=== PATIENT | female | born 1965 | race Caucasian/White ===

== ENCOUNTER 2017-12-25 10:41 | Day surgery (SDC) | payer OTHER ==
[2017-12-21 16:19] VITALS: BMI 22.4
[~2017-12-25 10:41] MED LIST: LACTATED RINGERS 1,000 ML IV SCH
[2017-12-25 11:01] VITALS: RESP 16; TEMP 98.4
[2017-12-25] MEDS ORDERED: LIDOCAINE 1% 20 ML VIAL (10MG/ML) FOR IV START INTRADERMA ONE (11:02)
[2017-12-25] MEDS ORDERED: LIDOCAINE 1% INJ 10MG/ML (20 ML MDV) ONE (12:11)
[2017-12-25] MEDS ORDERED: PROPOFOL 10 MG/ML 20 ML VIAL IV ONE (12:11)
[2017-12-25 12:39] VITALS: BP 103/65; PULSE 71
--- NOTE | 2017-12-25 12:42 | P.PCN ---
Date of Procedure: 12/25/17 Procedure(s) Performed: Procedure: Total colonoscopy. Preoperative diagnosis: Screening for neoplasia. Postoperative diagnosis: Mild diverticulosis with no evidence of acute diverticulitis, strictures, polyps or cancer. Preparation: HalfLytely prep. Sedation: Was provided by anesthesia. Brief clinical history: The patient is a 52-year-old female who is scheduled for this evaluation for screening for neoplasia age being her risk factor. There is no family history of colon cancer. She has no abdominal complaints, bleeding or anemia. Procedure: With the patient on her left lateral decubitus position and after informed consent and adequate sedation, the perianal area was elected and it did not show any fissures or fistulas. There were no masses felt on digital rectal examination. The Olympus CFQ 160L video colonoscope was then inserted in the rectum in the usual fashion and advanced to the cecum. There was occasional diverticular orifice seen on the right side and in the sigmoid but there was no evidence of acute diverticulitis or strictures. No polyps or tumors were seen. I retroflexed the endoscope in the rectum before the endoscope was withdrawn. The patient tolerated the procedure well. Plan: The patient was reassured. Discussed dietary measures. She will follow- up with you as planned and I recommended repeat exam in 10 years.
== END 2017-12-25 13:13 | disposition home or self-care (01) ==
LOC: ORWHC2ENDO 10:41
DX: Z12.11 Encounter for screening for malignant neoplasm of colon (principal); K57.30 Diverticulosis of large intestine without perforation or abscess without bleeding; F39 Unspecified mood [affective] disorder; Z79.1 Long term (current) use of non-steroidal anti-inflammatories (NSAID); Z79.891 Long term (current) use of opiate analgesic; Z79.899 Other long term (current) drug therapy; Z72.0 Tobacco use
CPT/HCPCS: J2001; J2704; G0121

== ENCOUNTER → 2019-07-31 | Outpatient (CLI) | payer OTHER ==
--- NOTE | 2019-08-01 00:13 | MR ---
EXAMINATION TYPE: MR lumbar spine wo con DATE OF EXAM: 07/31/2019 COMPARISON: None HISTORY: Chronic lower/mid back pain, hx thrown off horse as a child Multiplanar multiecho imaging of the lumbar spine was performed without contrast. There is mild thoracolumbar levoscoliosis. Disc spaces are fairly normal. There is no compression fra cture. There is developmentally large spinal canal. There is no spinal stenosis. There is small poste rior disc bulging at L5-S1 and L4-5 without compromise of the spinal canal. The lumbar neural foramin a are fairly well-maintained. There is no neural foraminal stenosis. I see no focal bone destruction. There is no lumbar paraspinal mass. The visualized sacroiliac joints appear intact. Lumbar nerve francia ts appear normal. IMPRESSION: Small posterior disc bulging at L4-5 L5-S1. No fracture. No spinal stenosis.
== END | disposition home or self-care (01) ==
LOC: RADMRIMAIN 16:31
PROVIDERS: ATTEND Family Medicine
DX: M51.26 Other intervertebral disc displacement, lumbar region (principal); M51.36 Other intervertebral disc degeneration, lumbar region; G89.29 Other chronic pain
CPT/HCPCS: 72148

== ENCOUNTER → 2020-07-03 | Outpatient (CLI) | payer OTHER ==
--- NOTE | 2020-07-03 12:35 | MR ---
MRI CERVICAL SPINE: CLINICAL HISTORY: Cervical disc degeneration, paresthesia of the skin, and other chronic pain per ord er. TECHNIQUE: Multiplanar, multisequence imaging of the cervical spine is performed without IV contrast. Headache with neck pain for 15 to 20 years causing pain or weakness into both arms and fingers per p atient. COMPARISON: None. FINDINGS: Coronal images show levoconvex scoliosis centered in the upper thoracic spine. Sagittal marci ges of the cervical spine show the craniocervical junction to appear within normal limits. The cervi marianela and upper thoracic spinal cord is normal in caliber and signal. Sagittal images show grade 1 retr olisthesis C5 on C6. There is moderate disc space narrowing at this level otherwise vertebral body an d intravertebral disk heights are normal. The bone marrow signal intensity is within normal limits. Axial images at C2-C3 level show uncovertebral facet degenerative changes bilaterally causing mild ri ght-sided neural foraminal narrowing. Axial images at C3-C4 level are within normal limits. Axial images at C4-C5 level show uncovertebral facet degenerative changes bilaterally causing mild to moderate left and mild to minimal right-sided neural foraminal narrowing. Axial images at C5-C6 level shows spondylosis with broad-based posterior disc protrusion, there is ef facement of the anterior thecal sac and fairly advanced bilateral neural foraminal narrowing. Axial images at C6-C7 and C7-T1 levels are within normal limits. IMPRESSION: Multilevel degenerative changes greatest at C5-C6 level as detailed above.
== END | disposition home or self-care (01) ==
LOC: RADMRIMAIN 10:39
PROVIDERS: ATTEND Family Medicine
DX: M47.812 Spondylosis without myelopathy or radiculopathy, cervical region (principal); G89.29 Other chronic pain
CPT/HCPCS: 72141

== ENCOUNTER → 2021-10-19 | Outpatient (CLI) | payer OTHER ==
--- NOTE | 2021-10-19 12:42 | XR ---
EXAM TYPE: LUMBAR SPINE X RAY SERIES COMPARISON: NONE HISTORY: Pain TECHNIQUE: 4 views are submitted. FINDINGS: Alignment is anatomic. The pedicles are intact. The transverse processes are intact. There is no s pondylolysis or spondylolisthesis. Curvature of the spine with diffuse osteopenia. Facet arthropathy lower lumbar spine and there is multilevel hypertrophic and degenerative change. IMPRESSION: 1. Multilevel degenerative disc disease with severe facet arthropathy lower lumbar spine with suspect ed foraminal encroachment. Recommend follow-up MRI.
--- NOTE | 2021-10-19 12:43 | XR ---
EXAMINATION TYPE: XR sacrum coccyx DATE OF EXAM: 10/19/2021 COMPARISON: NONE HISTORY: Pain Three views are submitted. SI joints are symmetric. Slight cortical offset of the sacrococcygeal sarath ction. Visualized pelvic structures intact. Facet arthropathy and degenerative disc disease lower l umbar spine. Sacral foramina appear patent and symmetric. IMPRESSION: 1. Slight offset of the sacrococcygeal junction on the lateral view. Correlate with point tenderness and with CT scan to assess for possible minimally displaced fracture.
== END | disposition home or self-care (01) ==
LOC: RADXRYALE 12:20
PROVIDERS: ATTEND Physician Assistant Medical
DX: M51.36 Other intervertebral disc degeneration, lumbar region (principal); M46.96 Unspecified inflammatory spondylopathy, lumbar region
CPT/HCPCS: 72110; 72220

== ENCOUNTER → 2021-10-20 | Outpatient (CLI) | payer OTHER ==
--- NOTE | 2021-10-20 15:11 | P.CON ---
Consult Note - . Consult date: 10/20/21 Assessment/Plan:: HISTORY OF PRESENT ILLNESS: 56 yr old female as a referral from Dr. Kaiser presents today with cervical pain secondary to DDD, spondylosis and facet arthropathy for evaluation. Pt states she has been suffering from neck pain for 20 years. Pain originates in the middle aspect of her cervical spine and radiates downwards between the shoulders bilaterally. It is also accompanied with headaches. Pain is 8 out of 10 in intensity, sharp, burning, waxes and wanes throughout the day with occasional numbness to the hands bilaterally. Pain is aggravated with rotation of the cervical spine. Pain is relieved with medications, topicals, heat, physical therapy twice a week for a year in the past, chiropractic treatments in the past, use of a massage device, using a reclining chair, laying on her right side and rest. PMH: Diverticulosis, MDD, Peripheral Neuropathy, CKD Stage 3. PSH: Colonoscopy, Cervical DDD, SH: Current tobacco user. Occassional ETOH use. No illicit drug use. FH: Non contributory. All: NKDA Meds: Percocet 10/325mg QID prn. Fentanyl 25mcg patch Q72hr. Trazodone 25mg QHS. REVIEW OF ORGAN SYSTEMS: CONSTITUTIONAL: No fevers or chills. No recent weight loss. HEENT: No visual acuity loss, eye pain, difficulties with hearing. No nosebleeds. No difficulty swallowing. RESPIRATORY: Denies any troubles with breathing or dyspnea on exertion. CARDIOVASCULAR: Denies any chest pain, palpitations, or recent heart attacks. GASTROINTESTINAL: Denies fatty food intolerance. Has change in bowel habits and gas bloat. GENITOURINARY: Denies any blood in urine. Has increased urinary frequency. NEUROLOGICAL: + numbness and tingling along the distal extremities. No seizure disorders or headaches. MUSCULOSKELETAL: + back pain SKIN: No skin cancer. No rash. PSYCHIATRIC: Denies current depression or suicidal thoughts. ENDOCRINE: Denies current thyroid disorders. Denies any blood sugar glucose intolerance. HEME/LYMPHATIC: Denies any lumps and bumps around the neck. History of deep venous thrombosis. ALLERGY/IMMUNOLOGY: No immunoglobulin therapy. No immune deficiencies. BREAST: Denies current breast lumps, pain or nipple discharge. Physical Examinations : Constitutional : Cooperative , not in acute distress . HEENT: Neck supple. No Lymphadenopathy. Normal thyroid size . Eyes no ptosis , no icterus, no photophobia . Hearing intact. Normal oropharynx. No Thrush. Respiratory : Chest clear to auscultations bilaterally. No wheezing. No rhonchi. Cardiovascular : Regular rate and rhythm , S1 / S2. No S3 . No S4. Gastrointestinal : Abdomen soft. No tenderness. Bowel sounds x 4. No organomegaly . Genitourinary : Deferred. Neurologic : Cranial nerve II to XII intact. No focal neurological deficits. Psychiatric : alert & oriented x 3. Matching mood & appropriate affect. Judgment & insight intact. Lymphatic No Lymphadenopathy. Musculoskeletal : Cervical Spine Motor strength in the deltoid and biceps: Normal right side. Normal Left side Motor strength biceps and the wrist extensors: Normal right side . Normal left side Motor strength in the triceps muscle: Normal right side. Normal left side Deep tendon reflexes: Normal at the biceps. Normal at Brachioradialis. Normal at triceps Vertebral body tenderness to palpation over C5, C6 Cervical facet loading test: positive bilaterally Spurling test: positive bilaterally Neck distraction test: positive bilaterally Nesha sign: positive bilaterally Lumbar spine Motor strength lower extremities ,thigh and legs 5/5 Right side , 5/5 Left side Deep tendon reflexes : Normal Knee Jerk. Normal Ankle Jerk Vertebral body tenderness over Lumbar facet Loading Test: positive Right / positive Left Range of motion of the lumbar spine Flexion 30 degrees, extension 10 degrees Straight Leg Raise test: Left/ Right positive at degree Vivian test: positive right / positive left. Severe tenderness over the Sacroiliac joint on the Right / Left sides Gaenslen test: positive bilaterally Seated flexion test: positive bilaterally. Imaging: MRI of the Cervical spine without contrast form 07/03/20 reviewed. Assessment/ Plan : Cervical DDD, spondylosis and facet arthropathy Recommendation of DANII C5-C6. May need a series of injections, up to 3 within a six-month period, to obtain optimal pain relief. Risks, benefits of procedure discussed and patient verbalized understanding. Denies aspirin or anti- coagulant use. Denies medical history of Diabetes. All questions answered. I have spent greater than 50 minutes on patient care today. Dr Harvey was available by phone for the evaluation of this patient. The time was used to review the medical records including relevant urine studies and Prescription history (MAPs), review of the available imaging, evaluation and examination of the patient, coordination of care with the medical staff and if applicable referring physicians, as well as creation of the medical record PQRS Measure Charge Sheet PQRS Narrative: Smoking Status Current every day smoker Home Medications: Ambulatory Orders Gabapentin [Neurontin] 1,200 mg PO HS 12/21/17 Ibuprofen [Motrin] 800 mg PO BID PRN 12/21/17 Metaxalone [Skelaxin] 400 mg PO HS 12/21/17 buPROPion [Wellbutrin] 100 mg PO DAILY 12/21/17 fentaNYL 75MCG/HR PATCH [Duragesic 75MCG/HR] 75 mcg TRANSDERM Q48H 12/21/17 oxyCODONE-APAP 10-325MG [Percocet 10-325 mg] 1 tab PO Q6HR PRN 12/21/17
[2021-10-20 15:14] VITALS: BP 124/80; PULSE 81; RESP 18; TEMP 97.7
== END | disposition home or self-care (01) ==
LOC: PNWHC3 13:58
PROVIDERS: ATTEND Specialist
DX: M47.892 Other spondylosis, cervical region (principal); M50.30 Other cervical disc degeneration, unspecified cervical region
CPT/HCPCS: 99211

== ENCOUNTER → 2021-11-01 | Outpatient (CLI) | payer OTHER ==
--- NOTE | 2021-11-01 16:24 | CT ---
EXAMINATION TYPE: CT pelvis wo con DATE OF EXAM: 11/01/2021 COMPARISON: X-ray dated 10/19/2021 HISTORY: lower sacral pain form fall CT DLP: 197.4 mGycm Automated exposure control for dose reduction was used. TECHNIQUE: Multiplanar CT scan of the pelvis without IV contrast administration. FINDINGS: Slight irregularity of the anterior and posterior cortex of S5 segment without significant surroundin g fat stranding or hematoma, possibly representing sequela of previous trauma. No definite acute sacr al or other pelvic bone fracture identified otherwise. Severe bilateral L4-5 and L5-S1 facet osteoarthropathy, more on the left side. Grossly unremarkable h ip joints and sacroiliac joints. Scattered arterial atherosclerotic calcifications. Scattered complic ated colonic diverticulosis. No suspicious pelvic lymphadenopathy or sizable fluid. IMPRESSION: The described changes at S5 segment could represent sequela of chronic rather than acute trauma, plea se correlate clinically. Further bone scan assessment can be considered if clinically required. Otherwise no definite acute sacral or other pelvic bone fracture identified. Incidental findings as d escribed above.
== END | disposition home or self-care (01) ==
LOC: RADCTMAIN 14:58
PROVIDERS: ATTEND Family Medicine
DX: M51.37 Other intervertebral disc degeneration, lumbosacral region (principal); R93.7 Abnormal findings on diagnostic imaging of other parts of musculoskeletal system; W01.0XXA Fall on same level from slipping, tripping and stumbling without subsequent striking against object, initial encounter
CPT/HCPCS: 72192

== ENCOUNTER 2022-04-18 10:51 | Day surgery (SDC) | payer OTHER ==
[~2022-04-18 10:51] MED LIST changes: +LIDOCAINE 1% (10MG/ML) FOR IV START INTRADERMA PRN
[2022-04-18 11:16] VITALS: TEMP 98.1
[2022-04-18] MEDS ORDERED: DEXAMETHASONE SOD PHOSPHATE 10 MG/ML 1 ML VIAL ONE (11:54)
[2022-04-18] MEDS ORDERED: fentaNYL (PF) 50 MCG/ML 2 ML AMP ONE (11:54)
[2022-04-18] MEDS ORDERED: MIDAZOLAM 2 MG/2 ML VIAL ONE (11:54)
[2022-04-18] MEDS ORDERED: IOPAMIDOL M200 10 ML VIAL ONE (11:54)
[2022-04-18] MEDS ORDERED: IV FLUID CONTINUATION 1,000 ML IV ONE (12:10)
--- NOTE | 2022-04-18 12:11 | P.PCN ---
Date of Procedure: 04/18/22 Procedure(s) Performed: . PROCEDURE 1. Cervical epidural steroid injection under fluoroscopic guidance, C5-6 (fluoroscopy images available in the radiology department ) 2. Cervical epidurogram. PREOPERATIVE DIAGNOSIS: 1- Cervical Degenerative Disc Diseases 2- Cervical radiculopathy., 3-cervical spondylosis with cervical Facet arthropathy without myelopathy.4-cervical spinal stenosis POSTOPERATIVE DIAGNOSIS: : 1- Cervical Degenerative Disc Diseases , 2- Cervical radiculopathy. 3-,cervical spondylosis with cervical Facet arthropathy without myelopathy. 4-cervical spinal stenosis ANESTHESIA: moderate sedation, with Versed 2 mg and Fentanyl 100 mcg. Sedation start time : 11:56 Sedation end time : 12:05 EBL 0 PROCEDURE INDICATION: The patient with neck pain and radiculitis unresponsive to conservative treatment consents for procedure. PROCEDURE DESCRIPTION / TECHNIQUE: The patient was seen and identified in the preoperative area. Risks, benefits, complications, including but not limited to infections ,bleeding , allergic reactions to the medications ,and not complete pain releife, and alternatives were discussed with the patient, the patient agreed to proceed with the procedure and signed the consent. Patient was taken to the OR and time out was completed. The patient was placed in the prone position on the procedure table. A pillow was placed under the patients chest to increase the cervical interlaminar space. The cervical area was prepped and draped in the usual sterile fashion. Vital signs were closely monitored during the procedure. Conscious sedation was used during the procedure to decrease patients anxiety. Using anterior-posterior fluoroscopy, the C5-6 interlaminar space was identified and the skin over this site was marked and then infiltrated with 1% lidocaine subcutaneously. Subsequently, a 20-gauge 3-1/2-inch Tuohy epidural needle was inserted and advanced toward the epidural space by means of the ``hanging-drop technique and guided by AP and lateral fluoroscopy. The correct needle position in the epidural space was verified with the injection of 2 mL of the water soluble contrast dye Isovue-200 and observing an excellent epidurogram with the epidural spread of the dye, after negative aspiration for blood and CSF and in the absence of paresthesias. then, mixture containing 20 mg Dexamethasone and 2 ml of preservative-free normal saline injected and a washout of epidurogram w as seen. Needle was withdrawn intact, skin was cleansed, and bandages were applied. Complications= none. Disposition= patient was placed in supine position and transferred to the recovery room area in stable condition and there was no evidence of upper or lower extremity motor or sensory deficit after the procedure patient was discharged from recovery room after discharge criteria met and home discharge instructions was given by the staff and patient will follow with the pain clinic in 2-4 weeks
--- NOTE | 2022-04-18 12:23 | FL ---
EXAMINATION TYPE: FL guided pain mgmt statistic DATE OF EXAM: 04/18/2022 HISTORY: Fluoroscopy time 3 seconds of fluoroscopy provided. IMPRESSION: 1. Fluoroscopy time.
[2022-04-18 12:29] VITALS: BP 117/76; PULSE 78; RESP 17
== END 2022-04-18 12:12 | disposition home or self-care (01) ==
LOC: ORPAIN 10:51
PROVIDERS: ATTEND Specialist
DX: M50.122 Cervical disc disorder at C5-C6 level with radiculopathy (principal); M48.02 Spinal stenosis, cervical region; M47.812 Spondylosis without myelopathy or radiculopathy, cervical region
CPT/HCPCS: 62321; J2250; J1100; J3010; Q9966